=== PATIENT | female | born 1970 | race Caucasian/White ===

== ENCOUNTER 2018-02-23 10:21 | Inpatient (IN) | payer MEDICAID, OTHER ==
[~2018-02-23] VITALS: Ht 157.5 cm; Wt 64.1 kg
[2018-02-23 11:03] LABS: Basophils # (auto) 0 uL; Eosinophils # (auto) 0 uL; Eosinophils % (auto) 0.8 % (0.0-7.0); Hemoglobin 10.7 g/dL (12.2-16.2); Lymphocytes # (auto) 1.4 uL; Monocytes # (auto) 0.3 uL; Neutrophils # (auto) 3.4 uL; White Blood Cell 5.2 10^3/uL (4.4-10.8)
[2018-02-23 11:05] LABS: Basophils % (auto) 0.6 % (0.0-2.0); Hematocrit 32.5 % (36.0-46.0); Lymphocytes % (auto) 26.3 % (10.0-50.0); Mean Corpuscular Hemoglobin 33.4 pg (28.0-32.0); Mean Corpuscular Volume 101.2 fL (80.0-100.0); Monocytes % (auto) 6.7 % (0.0-12.0); Neutrophils % (auto) 65.6 % (37.0-80.0); Nucleated Red Blood Cells % 0.1 %; Platelet Count (auto) 46 10^3/uL (140-450); Red Blood Cells 3.21 10^6/uL (4.0-5.20); Red Cell Distribution Width 16.8 % (11.8-14.3)
[2018-02-23] MEDS ORDERED: SODIUM CHLORIDE 0.9% 1,000 ML IV ONE ×2 (11:15→12:30)
[2018-02-23 11:20] LABS: Alanine Aminotransferase 72 U/L (13-56); Albumin 2.9 g/dL (3.4-5.0); Alkaline Phosphatase 138 U/L (45-117); Anion Gap 13 (5-15); Aspartate Aminotransferase 163 U/L (15-37); BUN/Creatinine Ratio 5.6; Blood Urea Nitrogen 4 mg/dL (7-18); Calcium 8.3 mg/dL (8.5-10.1); Carbon Dioxide 20 mmol/L (21-32); Chloride 107 mmol/L (98-107); GFR African American 114 mL/min; GFR Non-African American 94 mL/min; Glucose 95 mg/dL (74-106); Magnesium 2.1 mg/dL (1.6-2.6); Potassium 3.3 mmol/L (3.5-5.1); Sodium 140 mmol/L (136-145)
[2018-02-23] MEDS ORDERED: POTASSIUM CHL 10 Meq TABLET PO ONE (13:15)
[2018-02-23] MEDS ORDERED: THIAMINE INJ 100 MG, MULTIPLE VITAMIN 10 ML, FOLIC ACID 1 MG, MAGNESIUM SULF SDV 50% 8 ... IV ONE ×5 (13:15)
[2018-02-23] MEDS ORDERED: cefTRIAXone 1GM/10ml IVPUSH 10 ML IV ONE (13:15)
[2018-02-23] MEDS ORDERED: NITROGLYCERIN 0.4 MG SL TAB SL PRN (13:30)
[2018-02-23] MEDS ORDERED: LORazepam 2MG/ML-1ML VIAL IV PRN (13:30)
[2018-02-23] MEDS ORDERED: ALUM & MAG HYDROX-SIMETH LIQ(MAALOX) 30 ML PO PRN (13:30)
[2018-02-23] MEDS ORDERED: LACTULOSE 20Gm/30ML SOLN PO ONE (13:30)
[2018-02-23] MEDS ORDERED: MORPHINE SULFATE 4 MG/ML SYR/VIAL IV PRN ×2 (13:30)
[2018-02-23] MEDS ORDERED: chlordiazePOXIDE HCL 25 MG CAP PO PRN (13:30)
[2018-02-23] MEDS: GABAPENTIN 300 MG CAP PO SCH ×2 (14:38→22:07)
[2018-02-23] MEDS: SODIUM CHLOR 0.9% PF (SALINE LOCK) 10ML VIAL/SYR IV SCH ×2 (14:38→22:10)
[2018-02-23] MEDS ORDERED: IBUPROFEN 600 MG TAB PO PRN (15:45)
[2018-02-23] MEDS: FUROSEMIDE 20 MG TAB PO SCH (18:20)
[2018-02-23] MEDS: Ensure Enlive Strawberry 8oz Bottle PO SCH (18:55)
[2018-02-23] MEDS ORDERED: MULT-228 PO (19:03)
[2018-02-23] MEDS ORDERED: FURO20TA3 PO (19:03)
[2018-02-23 19:16] LABS: INR 1.72 (0.9-1.15); Prothrombin Time 17.8 sec (9.27-12.13)
[2018-02-23 19:33] LABS: Lactic Acid w/Reflex 3.3 mmol/L (0.4-2.0)
[2018-02-23 22:00] VITALS: BP 114/66
[2018-02-23] MEDS: ATENOLOL 25 MG TAB PO SCH (22:00)
[2018-02-23] MEDS: POTASSIUM CHL 10 Meq TABLET PO SCH (22:07)
[2018-02-23] MEDS: LACTULOSE 20Gm/30ML SOLN PO SCH (22:07)
[2018-02-23] MEDS: FAMOTIDINE 20 MG TAB PO SCH (22:07)
[2018-02-24 05:13] VITALS: BP 118/65
[2018-02-24] MEDS: GABAPENTIN 300 MG CAP PO SCH ×3 (05:58→23:12)
[2018-02-24] MEDS: FUROSEMIDE 20 MG TAB PO SCH ×2 (05:59→18:06)
[2018-02-24] MEDS: SODIUM CHLOR 0.9% PF (SALINE LOCK) 10ML VIAL/SYR IV SCH ×3 (05:59→22:00)
[2018-02-24 06:08] LABS: Basophils # (auto) 0 uL; Basophils % (auto) 0.5 % (0.0-2.0); Eosinophils # (auto) 0 uL; Lymphocytes # (auto) 0.8 uL; Monocytes # (auto) 0.1 uL; Neutrophils # (auto) 0.8 uL
[2018-02-24 06:12] LABS: Eosinophils % (auto) 1.8 % (0.0-7.0); Hemoglobin 8.1 g/dL (12.2-16.2); Lymphocytes % (auto) 45.2 % (10.0-50.0); Mean Corpuscular Hemoglobin 35.1 pg (28.0-32.0); Mean Corpuscular Hgb Conc. 33.7 g/dL (32.0-36.0); Mean Corpuscular Volume 104.1 fL (80.0-100.0); Monocytes % (auto) 6.7 % (0.0-12.0); Neutrophils % (auto) 45.8 % (37.0-80.0); Nucleated Red Blood Cells % 0.4 %; Platelet Count (auto) 21 10^3/uL (140-450); Red Blood Cells 2.31 10^6/uL (4.0-5.20); Red Cell Distribution Width 16.9 % (11.8-14.3)
[2018-02-24 06:50] LABS: Potassium 3.5 mmol/L (3.5-5.1)
[2018-02-24 06:56] LABS: Albumin 2.1 g/dL (3.4-5.0); BUN/Creatinine Ratio 6.3; Calcium 7.6 mg/dL (8.5-10.1)
[2018-02-24 06:58] LABS: Bilirubin, Total 7.5 mg/dL (0.2-1.0); Total Protein 5.8 g/dL (6.4-8.2)
[2018-02-24 07:01] LABS: White Blood Cell 1.8 10^3/uL (4.4-10.8)
[2018-02-24] MEDS: Ensure Enlive Strawberry 8oz Bottle PO SCH ×3 (07:56→18:07)
[2018-02-24 08:34] VITALS: BP 128/77
[2018-02-24] MEDS: LACTULOSE 20Gm/30ML SOLN PO SCH ×2 (10:35→22:00)
[2018-02-24] MEDS: FAMOTIDINE 20 MG TAB PO SCH ×2 (10:35→23:12)
[2018-02-24] MEDS: ATENOLOL 25 MG TAB PO SCH ×2 (10:36→23:13)
[2018-02-24] MEDS: MULTIPLE VITAMIN TAB PO SCH (10:36)
[2018-02-24] MEDS: POTASSIUM CHL 10 Meq TABLET PO SCH ×2 (10:37→23:10)
[2018-02-24] MEDS: cefTRIAXone 1GM/10ml IVPUSH 10 ML IV SCH (10:38)
[2018-02-24] MEDS ORDERED: chlordiazePOXIDE HCL 25 MG CAP PO PRN (12:30)
[2018-02-24] MEDS: ONDANSETRON HCL 4 MG/2 ML VIAL IV PRN ×2 (12:44→23:25)
[2018-02-24] MEDS: chlordiazePOXIDE HCL 25 MG CAP PO SCH ×2 (12:44→23:11)
[2018-02-24 13:22] LABS: Urine Bacteria FEW /hpf (None Seen); Urine Blood Negative /uL (Negative); Urine Hyaline Cast FEW /lpf (0 - 2); Urine Mucus FEW (None Seen); Urine Specific Gravity 1.008 (1.001-1.035); Urine WBC 9 /hpf (0 - 5)
[2018-02-24 13:32] VITALS: BP 127/72
[2018-02-24 16:58] VITALS: BP 116/68
[2018-02-24] MEDS: SPIRONOLACTONE 25 MG TAB PO SCH (18:07)
[2018-02-24 22:00] VITALS: BP 112/56
[2018-02-24] MEDS ORDERED: SODIUM BICARBONATE 650 MG TAB PO SCH (22:00)
[2018-02-25 05:00] VITALS: BP 107/67
[2018-02-25 05:34] LABS: Basophils # (auto) 0 uL; Eosinophils # (auto) 0.1 uL; Hemoglobin 8.6 g/dL (12.2-16.2); Monocytes # (auto) 0.2 uL; Red Blood Cells 2.42 10^6/uL (4.0-5.20)
[2018-02-25 05:37] LABS: Basophils % (auto) 0.5 % (0.0-2.0); Hematocrit 25.1 % (36.0-46.0); Lymphocytes % (auto) 41.3 % (10.0-50.0); Mean Corpuscular Hemoglobin 35.7 pg (28.0-32.0); Mean Corpuscular Hgb Conc. 34.4 g/dL (32.0-36.0); Mean Corpuscular Volume 103.7 fL (80.0-100.0); Monocytes % (auto) 7.5 % (0.0-12.0); Neutrophils # (auto) 1.2 uL; Neutrophils % (auto) 47.7 % (37.0-80.0); Nucleated Red Blood Cells % 0.2 %; Red Cell Distribution Width 16.8 % (11.8-14.3); White Blood Cell 2.5 10^3/uL (4.4-10.8)
[2018-02-25 05:40] LABS: Platelet Count (auto) 25 10^3/uL (140-450)
[2018-02-25 05:53] LABS: Albumin 2.3 g/dL (3.4-5.0); BUN/Creatinine Ratio 8.4; Bilirubin, Direct 3.6 mg/dL (0-0.2); Bilirubin, Total 6.8 mg/dL (0.2-1.0); Calcium 8.4 mg/dL (8.5-10.1); Magnesium 1.7 mg/dL (1.6-2.6); Potassium 4.2 mmol/L (3.5-5.1); Total Protein 6.2 g/dL (6.4-8.2)
[2018-02-25] MEDS: SPIRONOLACTONE 25 MG TAB PO SCH ×2 (06:00→18:36)
[2018-02-25] MEDS: SODIUM CHLOR 0.9% PF (SALINE LOCK) 10ML VIAL/SYR IV SCH ×3 (06:37→21:37)
[2018-02-25] MEDS: FUROSEMIDE 20 MG TAB PO SCH ×2 (06:48→18:00)
[2018-02-25] MEDS: chlordiazePOXIDE HCL 25 MG CAP PO SCH ×3 (06:48→21:38)
[2018-02-25] MEDS: GABAPENTIN 300 MG CAP PO SCH ×3 (06:49→21:38)
[2018-02-25 09:00] VITALS: BP 100/55
[2018-02-25] MEDS: Ensure Enlive Strawberry 8oz Bottle PO SCH ×3 (09:12→18:36)
[2018-02-25] MEDS: cefTRIAXone 1GM/10ml IVPUSH 10 ML IV SCH (10:04)
[2018-02-25] MEDS: LACTULOSE 20Gm/30ML SOLN PO SCH ×2 (11:05→21:37)
[2018-02-25] MEDS: FAMOTIDINE 20 MG TAB PO SCH ×2 (11:07→21:38)
[2018-02-25] MEDS: PROPRANOLOL HCL 20 MG TAB PO SCH ×2 (11:07→21:37)
[2018-02-25] MEDS: MULTIPLE VITAMIN TAB PO SCH (11:07)
[2018-02-25] MEDS: POTASSIUM CHL 10 Meq TABLET PO SCH ×2 (11:07→21:37)
[2018-02-25 12:59] VITALS: BP 99/55
[2018-02-25 17:00] VITALS: BP 92/50
[2018-02-25 21:53] VITALS: BP 100/52
[2018-02-26 05:00] VITALS: BP 102/56
[2018-02-26] MEDS: FUROSEMIDE 20 MG TAB PO SCH ×2 (06:00→18:00)
[2018-02-26 06:15] LABS: Basophils # (auto) 0 uL; Eosinophils # (auto) 0.1 uL; Lymphocytes % (auto) 36.1 % (10.0-50.0); Neutrophils # (auto) 1.6 uL
[2018-02-26] MEDS: SPIRONOLACTONE 25 MG TAB PO SCH ×2 (06:15→18:52)
[2018-02-26] MEDS: GABAPENTIN 300 MG CAP PO SCH ×3 (06:15→21:09)
[2018-02-26 06:18] LABS: Basophils % (auto) 0.5 % (0.0-2.0); Eosinophils % (auto) 3.2 % (0.0-7.0); Hematocrit 25.8 % (36.0-46.0); Hemoglobin 8.9 g/dL (12.2-16.2); Lymphocytes # (auto) 1.1 uL; Mean Corpuscular Hemoglobin 36.3 pg (28.0-32.0); Mean Corpuscular Hgb Conc. 34.5 g/dL (32.0-36.0); Monocytes # (auto) 0.2 uL; Monocytes % (auto) 5.6 % (0.0-12.0); Neutrophils % (auto) 54.6 % (37.0-80.0); Nucleated Red Blood Cells % 0.2 %; Red Blood Cells 2.45 10^6/uL (4.0-5.20); Red Cell Distribution Width 17.2 % (11.8-14.3); White Blood Cell 2.9 10^3/uL (4.4-10.8)
[2018-02-26 06:25] LABS: Mean Corpuscular Volume 104.8 fL (80.0-100.0); Platelet Count (auto) 33 10^3/uL (140-450)
[2018-02-26] MEDS: SODIUM CHLOR 0.9% PF (SALINE LOCK) 10ML VIAL/SYR IV SCH ×3 (06:25→21:08)
[2018-02-26 06:33] LABS: INR 1.84 (0.9-1.15)
[2018-02-26 06:47] LABS: Albumin 2.3 g/dL (3.4-5.0); Bilirubin, Direct 3.2 mg/dL (0-0.2); Bilirubin, Total 5.5 mg/dL (0.2-1.0); Calcium 8.9 mg/dL (8.5-10.1); Total Protein 6.4 g/dL (6.4-8.2)
[2018-02-26] MEDS: Ensure Enlive Strawberry 8oz Bottle PO SCH ×3 (08:51→18:53)
[2018-02-26 09:00] VITALS: BP 91/45
[2018-02-26] MEDS: cefTRIAXone 1GM/10ml IVPUSH 10 ML IV SCH (09:36)
[2018-02-26] MEDS: PROPRANOLOL HCL 20 MG TAB PO SCH ×2 (09:36→21:11)
[2018-02-26] MEDS: FAMOTIDINE 20 MG TAB PO SCH ×2 (09:43→21:09)
[2018-02-26] MEDS: MULTIPLE VITAMIN TAB PO SCH (09:45)
[2018-02-26] MEDS: POTASSIUM CHL 10 Meq TABLET PO SCH ×2 (09:46→21:09)
[2018-02-26] MEDS: LACTULOSE 20Gm/30ML SOLN PO SCH ×2 (09:47→21:09)
[2018-02-26 13:00] VITALS: BP 101/52
[2018-02-26] MEDS: chlordiazePOXIDE HCL 25 MG CAP PO SCH ×2 (14:16→21:09)
[2018-02-26 17:00] VITALS: BP 108/58
[2018-02-26 22:00] VITALS: BP 102/48
[2018-02-27 05:00] VITALS: BP 96/65
[2018-02-27 05:19] LABS: Basophils # (auto) 0 uL; Eosinophils # (auto) 0.1 uL; Lymphocytes # (auto) 0.9 uL; Monocytes # (auto) 0.2 uL; Neutrophils # (auto) 1.6 uL; Nucleated Red Blood Cells % 0.1 %; White Blood Cell 2.8 10^3/uL (4.4-10.8)
[2018-02-27 05:23] LABS: Basophils % (auto) 0.2 % (0.0-2.0); Eosinophils % (auto) 3.1 % (0.0-7.0); Hematocrit 25.1 % (36.0-46.0); Hemoglobin 8.6 g/dL (12.2-16.2); Lymphocytes % (auto) 33.1 % (10.0-50.0); Mean Corpuscular Hemoglobin 35.6 pg (28.0-32.0); Mean Corpuscular Volume 104.6 fL (80.0-100.0); Monocytes % (auto) 7.2 % (0.0-12.0); Neutrophils % (auto) 56.4 % (37.0-80.0); Platelet Count (auto) 34 10^3/uL (140-450); Red Cell Distribution Width 17.8 % (11.8-14.3)
[2018-02-27 05:42] LABS: Calcium 8.9 mg/dL (8.5-10.1); Potassium 3.8 mmol/L (3.5-5.1)
[2018-02-27] MEDS: chlordiazePOXIDE HCL 25 MG CAP PO SCH ×3 (05:58→21:49)
[2018-02-27] MEDS: GABAPENTIN 300 MG CAP PO SCH ×3 (05:58→21:50)
[2018-02-27] MEDS: SPIRONOLACTONE 25 MG TAB PO SCH ×2 (05:59→18:22)
[2018-02-27] MEDS: SODIUM CHLOR 0.9% PF (SALINE LOCK) 10ML VIAL/SYR IV SCH ×3 (05:59→21:50)
[2018-02-27] MEDS: FUROSEMIDE 20 MG TAB PO SCH ×2 (05:59→18:21)
[2018-02-27 09:00] VITALS: BP 103/53
[2018-02-27] MEDS: MULTIPLE VITAMIN TAB PO SCH (09:31)
[2018-02-27] MEDS: cefTRIAXone 1GM/10ml IVPUSH 10 ML IV SCH (09:31)
[2018-02-27] MEDS: LACTULOSE 20Gm/30ML SOLN PO SCH ×2 (09:31→21:49)
[2018-02-27] MEDS: POTASSIUM CHL 10 Meq TABLET PO SCH ×2 (09:32→21:49)
[2018-02-27] MEDS: FAMOTIDINE 20 MG TAB PO SCH ×2 (09:32→21:49)
[2018-02-27] MEDS: Ensure Enlive Strawberry 8oz Bottle PO SCH ×3 (09:36→18:22)
[2018-02-27] MEDS: PROPRANOLOL HCL 20 MG TAB PO SCH ×2 (09:36→22:00)
[2018-02-27 13:03] VITALS: BP 98/62
[2018-02-27] MEDS ORDERED: MORPHINE SULFATE 4 MG/ML SYR/VIAL IV PRN (16:30)
[2018-02-27 16:44] VITALS: BP 103/64
[2018-02-27 21:30] VITALS: BP 103/58
[2018-02-28 05:00] VITALS: BP 105/59
[2018-02-28 05:21] LABS: Basophils # (auto) 0 uL; Basophils % (auto) 0.5 % (0.0-2.0); Eosinophils # (auto) 0 uL; Eosinophils % (auto) 2.2 % (0.0-7.0); Hemoglobin 7.8 g/dL (12.2-16.2); Lymphocytes # (auto) 0.7 uL; Lymphocytes % (auto) 31.8 % (10.0-50.0); Mean Corpuscular Hemoglobin 35.4 pg (28.0-32.0); Mean Corpuscular Hgb Conc. 33.7 g/dL (32.0-36.0); Mean Corpuscular Volume 105.1 fL (80.0-100.0); Monocytes # (auto) 0.2 uL; Monocytes % (auto) 7.8 % (0.0-12.0); Neutrophils # (auto) 1.3 uL; Neutrophils % (auto) 57.7 % (37.0-80.0); Nucleated Red Blood Cells % 0.1 %; Platelet Count (auto) 30 10^3/uL (140-450); Red Blood Cells 2.19 10^6/uL (4.0-5.20); Red Cell Distribution Width 18.1 % (11.8-14.3); White Blood Cell 2.2 10^3/uL (4.4-10.8)
[2018-02-28 05:39] LABS: Albumin 2.1 g/dL (3.4-5.0); BUN/Creatinine Ratio 13.9; Calcium 8.5 mg/dL (8.5-10.1)
[2018-02-28 05:41] LABS: Bilirubin, Total 4.7 mg/dL (0.2-1.0); Total Protein 5.8 g/dL (6.4-8.2)
[2018-02-28] MEDS: SODIUM CHLOR 0.9% PF (SALINE LOCK) 10ML VIAL/SYR IV SCH (05:44)
[2018-02-28] MEDS: SPIRONOLACTONE 25 MG TAB PO SCH (05:44)
[2018-02-28] MEDS: FUROSEMIDE 20 MG TAB PO SCH (05:45)
[2018-02-28] MEDS: GABAPENTIN 300 MG CAP PO SCH (05:45)
[2018-02-28] MEDS: chlordiazePOXIDE HCL 25 MG CAP PO SCH (05:45)
[2018-02-28] MEDS: Ensure Enlive Strawberry 8oz Bottle PO SCH (08:12)
[2018-02-28 09:00] VITALS: BP 104/54
[2018-02-28] MEDS ORDERED: SPIR25TA88 PO (09:35)
[2018-02-28] MEDS ORDERED: LACT10SO3 PO (09:35)
[2018-02-28] MEDS ORDERED: PANT40TA2 PO (09:35)
[2018-02-28] MEDS ORDERED: FUR20T PO (09:35)
[2018-02-28] MEDS ORDERED: MULTTAB99 PO (09:35)
[2018-02-28] MEDS ORDERED: FUROSEMIDE 20 MG TAB PO SCH (10:00)
[2018-02-28] MEDS: LACTULOSE 20Gm/30ML SOLN PO SCH (10:47)
[2018-02-28] MEDS: MULTIPLE VITAMIN TAB PO SCH (10:47)
[2018-02-28] MEDS: FAMOTIDINE 20 MG TAB PO SCH (10:48)
[2018-02-28] MEDS: POTASSIUM CHL 10 Meq TABLET PO SCH (10:48)
[2018-02-28 13:00] VITALS: BP 106/61
[2018-02-28] MEDS ORDERED: SPIRONOLACTONE 25 MG TAB PO SCH (18:00)
== END 2018-02-28 14:50 | disposition home or self-care (01) | DRG 720 ==
LOC: EDBD 10:21 → ER 10:23 → TELE 10:24 → TELE-WESTW 17:50 → WEST WING 02-26 04:18
PROVIDERS: ADMIT Internal Medicine; ATTEND Internal Medicine
DX: A41.9 Sepsis, unspecified organism (principal); E43 Unspecified severe protein-calorie malnutrition; F10.231 Alcohol dependence with withdrawal delirium; D61.818 Other pancytopenia; D68.9 Coagulation defect, unspecified; K76.6 Portal hypertension; E83.51 Hypocalcemia; R16.1 Splenomegaly, not elsewhere classified; K72.90 Hepatic failure, unspecified without coma; K70.30 Alcoholic cirrhosis of liver without ascites; D63.8 Anemia in other chronic diseases classified elsewhere; Y90.8 Blood alcohol level of 240 mg/100 ml or more; E87.6 Hypokalemia; K80.20 Calculus of gallbladder without cholecystitis without obstruction; J98.11 Atelectasis; Z88.0 Allergy status to penicillin; Z88.1 Allergy status to other antibiotic agents; Z98.51 Tubal ligation status; Z83.3 Family history of diabetes mellitus
CPT/HCPCS: 36415; 71045; 74176; 80048; 80053; 80076; 80320; 81001; 82140; 83605; 83735; 84484; 85025; 85610; 87086; 93005; 93306; 96361; 96365; J0696; J2405